=== PATIENT | male | born 1975 | race Caucasian/White ===

== ENCOUNTER 2019-10-31 07:36 | Emergency (ER) | payer OTHER ==
--- NOTE | 2019-10-31 08:01 | EDM.PDOC ---
ED HPI GENERAL MEDICAL PROBLEM - General Stated Complaint: ALLERGIES/POSSIBLE EAR INFECTION Time Seen by Provider: 10/31/19 07:45 Source of Information: Reports: Patient History Limitations: Reports: No Limitations - History of Present Illness INITIAL COMMENTS - FREE TEXT/NARRATIVE: This 44 yo male patient reports to the ED with increased pain in his left ear over the past 2 days. The patient reports he has a history of swimmer's ear and allergies. The patient reports he has been taking Mucinex with little to nor relief. Duration: Day(s):, Constant, Getting Worse Location: Reports: Head (left ear) Quality: Reports: Ache, Dull Severity: Moderate Improves with: Reports: None Worsens with: Reports: None Context: Reports: Other Associated Symptoms: Reports: No Other Symptoms Left Ear Pain Score (Numeric/FACES): 4 - Related Data Allergies Allergy/AdvReac Type Severity Reaction Status Date / Time Penicillins Allergy Cannot Verified 10/31/19 07:48 Remember Home Meds: Home Meds Minocycline [Minocin] 100 mg PO DAILY 10/31/19 [History] Past Medical History Dermatologic History: Reports: Other (See Below) Other Dermatologic History: rosacea Social & Family History - Tobacco Use Smoking Status *Q: Never Smoker - Recreational Drug Use Recreational Drug Use: No ED ROS ENT - Review of Systems Review Of Systems: Comprehensive ROS is negative, except as noted in HPI. ED EXAM, ENT - Physical Exam Exam: See Below Exam Limited By: No Limitations General Appearance: Alert, WD/WN, Moderate Distress Eye Exam: Bilateral Eye: EOMI, PERRL Ears: Normal External Exam, Canal Swelling (left) Nose: Normal Inspection, Normal Mucousa, No Blood Mouth/Throat: Normal Inspection, Normal Gums, Normal Lips, Normal Oropharynx, Normal Teeth Head: Atraumatic, Normocephalic Neck: Normal Inspection, Supple, Non-Tender, Full Range of Motion Respiratory/Chest: No Respiratory Distress, Lungs Clear, Normal Breath Sounds, No Accessory Muscle Use, Chest Non-Tender Cardiovascular: Normal Peripheral Pulses, Regular Rate, Rhythm, No Edema, No Gallop, No JVD, No Murmur, No Rub GI/Abdominal: Normal Bowel Sounds, Soft, Non-Tender, No Organomegaly, No Distention, No Abnormal Bruit, No Mass (Male) Exam: Deferred Rectal (Males) Exam: Deferred Back: Normal Inspection, Full Range of Motion Extremities: Normal Inspection, Normal Range of Motion, Non-Tender, No Pedal Edema, Normal Capillary Refill Neurological: Alert, Oriented, CN II-XII Intact, Normal Cognition, Normal Gait, Normal Reflexes, No Motor/Sensory Deficits Psychiatric: Normal Affect, Normal Mood Skin: Warm, Dry, Intact, Normal Color, No Rash Lymphatic: No Adenopathy Course - Vital Signs Last Recorded V/S: Last Vital Signs Temp 36.4 C 10/31/19 07:44 Pulse 68 10/31/19 07:44 Resp 16 10/31/19 07:44 BP 114/84 10/31/19 07:44 Pulse Ox 100 10/31/19 07:44 Departure - Departure Time of Disposition: 07:56 Disposition: Home, Self-Care 01 Condition: Fair Clinical Impression: Otitis externa Qualifiers: Otitis externa type: swimmer's ear Chronicity: acute Laterality: left Qualified Code(s): H60.332 - Swimmer's ear, left ear - Discharge Information Instructions: Otitis Externa, [id number] Forms: ED Department Discharge Care Plan Goals: The patient was advised of the examination results during the visit. The patient was discharged with a script for Cortisporin Otic to place 4 drops into the affected ear 4 times per day for 10 days. The patient was also encouraged to take a second generation antihistamine to help relieve the allergy systems. If the patient has any additional symptoms or concerns, the patient should either return to the emergency department or visit his primary care facility. Sepsis Event Note (ED) - Evaluation Sepsis Screening Result: No Definite Risk - Focused Exam Vital Signs: Vital Signs Temp Pulse Resp BP Pulse Ox 10/31/19 07:44 36.4 C 68 16 114/84 100
== END 2019-10-31 08:14 | disposition home or self-care (01) ==
LOC: DL.ED 07:36
DX: H60.332 Swimmer's ear, left ear (principal); H60.92 Unspecified otitis externa, left ear; Z88.0 Allergy status to penicillin
CPT/HCPCS: 99282